=== PATIENT | female | born 1965 | race Caucasian/White ===

== ENCOUNTER 2020-03-08 10:55 | Emergency (ER) | payer OTHER, SELFPAY ==
[2020-03-08 11:15] VITALS: BP 120/84; PULSE 86; RESP 20; TEMP 36.7; O2SAT 99
--- NOTE | 2020-03-08 11:16 | ED.GENADULT ---
HPI - General Adult General Chief complaint: Upper Respiratory Infection Stated complaint: COVID Symptoms Time Seen by Provider: 03/08/20 11:43 Source: patient Mode of arrival: ambulatory Limitations: no limitations History of Present Illness HPI narrative: 55-year-old female patient presents to the [facility] with complaints of a productive cough, stuffy nose, runny nose, fatigue, scratchy throat and a low-grade fever of 99 that started today. Patient states that symptoms have been going on now for about 3 days. Patient states that her was seen here yesterday and tested positive for Covid. Patient is a registered nurse. Patient states that she did receive her second Covid vaccine approximately 11 days ago. Patient denies taking anything for her symptoms since they began. Related Data Allergies Allergy/AdvReac Type Severity Reaction Status Date / Time No Known Allergies Allergy Verified 03/08/20 11:41 Review of Systems Review of Systems: Narrative: CONSTITUTIONAL: Positive low-grade fever, denies chills, or sweats. EYES: Denies visual changes, redness, or discharge. ENT: Positive rhinorrhea, congestion, sore throat, or otalgia. CARDIOVASCULAR: Denies chest pain, palpitations, or edema. RESPIRATORY: Positive productive cough, denies dyspnea. GASTROINTESTINAL: Denies abdominal pain, nausea, vomiting, or diarrhea. GENITOURINARY: Denies dysuria or hematuria. SKIN: Denies rash or itching. MUSCULOSKELETAL: Denies back pain, joint pain, or myalgia. NEUROLOGIC: Denies headache, numbness, or weakness. Positive fatigue PSYCHIATRIC: Denies anxiety or depression. PMFSH Comments At the time of my signature I agree with nursing past medical history, surgical, social, and family history. There is no relevant family history pertinent to the presenting complaint. Exam Narrative: Exam Narrative: GENERAL: Well-appearing, well-nourished, and in no acute distress. HEAD: Normocephalic, atraumatic. EYES: PERRLA and EOMI. ENT: Nares with erythema and edema noted bilaterally, no rhinorrhea or epistaxis. Mucous membranes moist. Posterior pharynx no erythema, tonsillar edema, exudates or lesions present. Bilateral TMs are clear with no erythema or foreign bodies in the canal. NECK: Supple. No lymphadenopathy CHEST: Clear to auscultation. No respiratory distress. Patient able talk in clear complete sentences. HEART: Regular rate and rhythm. No murmur heard. Normal peripheral pulses. ABDOMEN: Soft, nontender, nondistended, normal active bowel sounds. EXTREMITIES: Normal range of motion. No edema. SKIN: Warm, dry, no rash. NEURO: No focal deficits. Alert and oriented x3. Course Vital Signs Vital signs: Vital signs reviewed Medical Decision Making Differential Diagnosis Differential Diagnosis: Differential diagnosis: Allergic rhinitis, chronic sinusitis, tonsillitis, acute sinusitis, infectious mononucleosis, seasonal influenza, pertussis, diphtheria, meningococcal disease, viral syndrome, viral bronchitis, RSV, COVID-19 Discussed with patient that since she has only had symptoms now for 3 days we will go ahead and do a PCR test on her but I do not think that she needs a rapid done at this time. Discussed with her that the fact that she works as a nurse, she is having Covid symptoms and she is living with someone now that it did test positive I think it is safe to say we can assume that she has positive. Discussed with patient's very important to remain isolated stay home from work until she has received these results. Discussed with patient that even if her test results come back negative she still needs to treat her self visit she was positive and would highly recommend her continuing to quarantine for at least 10 days from the onset of her symptoms. Discussed with patient that she can take [id number] medications such as Tylenol, ibuprofen I will give her some Tessalon Perles to help with the coughing. Discussed with patient I do not
[2020-03-09 18:13] LABS: SARS-CoV-2 RNA PCR Negative
== END 2020-03-08 11:45 | disposition home or self-care (01) ==
PROVIDERS: Emergency Provider Nurse Practitioner Family; PCP Family Medicine
DX: Z20.822 Contact with and (suspected) exposure to COVID-19 (principal)
CPT/HCPCS: 99213; C9803; G0463; U0003; U0005